=== PATIENT | female | born 2000 | race American Indian/Alaskan Native ===

== ENCOUNTER 2022-03-13 22:16 | Emergency (ER) | payer MEDICAID ==
[2022-03-13] MEDS ORDERED: Amoxicillin 500 MG Cap PO ONE (22:49)
== END 2022-03-13 23:07 | disposition home or self-care (01) ==
LOC: DL.ED 22:16
DX: J02.9 Acute pharyngitis, unspecified (principal)
CPT/HCPCS: 99283; A9270

== ENCOUNTER 2022-11-28 10:46 | Emergency (ER) | payer MEDICAID ==
[2022-11-28] MEDS ORDERED: Sodium Chloride 0.9% 10 ML Syringe FLUSH PRN (10:59)
[2022-11-28] MEDS ORDERED: diphenhydrAMINE 50 MG/ML SDV IVPUSH ONE (10:59)
[2022-11-28] MEDS ORDERED: methylPREDNISolone Sodium Succinate 125 MG/2 ML SDV IVPUSH ONE (11:00)
[2022-11-28] MEDS ORDERED: Sodium Chloride 0.9% 1,000 ML IV ONE (11:00)
[2022-11-28 11:54] LABS: ANION GAP 13.1 mEq/L (7-13)
== END 2022-11-28 12:27 | disposition home or self-care (01) ==
LOC: DL.ED 10:46
DX: O99.73 Diseases of the skin and subcutaneous tissue complicating the puerperium (principal); L50.9 Urticaria, unspecified; Z91.048 Other nonmedicinal substance allergy status; Z98.890 Other specified postprocedural states
CPT/HCPCS: 36415; 80053; 85025; 96361; 96374; 96375; 99283; 99283-25; J1200; J2930; J3490; J7030

== ENCOUNTER 2024-05-13 23:27 | Emergency (ER) | payer SELFPAY ==
[2024-05-14] MEDS: Iopamidol 612 MG/ML 100 ML Bottle IVPUSH ONE (00:01)
[2024-05-14 00:11] LABS: BASOPHILS PERCENT AUTO 0.5 % (0.0-1.0); EOSINOPHILS PERCENT AUTO 10.5 % (1.0-3.0); HEMATOCRIT 36.8 % (37.0-47.0); LYMPHOCYTES PERCENT AUTO 22.2 % (20.5-50.1); MEAN CORPUSCULAR HEMOGLOBIN 25.7 pg (27.0-34.0); MEAN CORPUSCULAR HGB CONC 32.6 g/dL (33.0-35.0); MEAN CORPUSCULAR VOLUME 78.8 fL (80-100); MONOCYTES PERCENT AUTO 8.5 % (2-8); NEUTROPHILS PERCENT AUTO 58.3 % (42.2-75.2); PLATELET COUNT,PLT 243 10^3/uL (150-450); RED BLOOD CELL COUNT 4.67 10^6/uL (4.2-5.4); WHITE BLOOD CELL COUNT,WBC 6.6 10^3/uL (5.0-10.0)
[2024-05-14] MEDS: Sodium Chloride 0.9% 1,000 ML IV ONE (00:22)
[2024-05-14] MEDS: Ondansetron 4 MG/2 ML SDV IVPUSH ONE (00:22)
[2024-05-14] MEDS: HYDROmorphone 0.5 MG/0.5 ML Syringe IVPUSH ONE (00:25)
[2024-05-14 00:26] LABS: ALANINE AMINOTRANSFERASE,ALT 572 U/L (14-59); ALBUMIN 2.7 g/dL (3.4-5.0); ALKALINE PHOSPHATASE 391 U/L (46-116); ANION GAP 14.5 mEq/L (7-13); ASPARTATE AMNIOTRANSFERASE,AST 547 U/L (15-37); BILIRUBIN TOTAL 0.4 mg/dL (0.2-1.0); BLOOD UREA NITROGEN,BUN 4 mg/dL (7-18); BUN/CREATININE RATIO 6.6 (No establ ref range); CALCIUM 7.6 mg/dL (8.5-10.1); CARBON DIOXIDE,CO2 23 mmol/L (21-32); CHLORIDE,CL 104 mmol/L (98-107); CREATININE 0.61 mg/dL (0.55-1.02); ETHANOL BLOOD MEDICAL 191 mg/dL (0); GLUCOSE RANDOM 116 mg/dL (70-99); POTASSIUM,K 3.5 mmol/L (3.5-5.1); PROTEIN TOTAL,TP 6.4 g/dL (6.4-8.2); SODIUM,NA 138 mmol/L (136-145)
[2024-05-14 00:27] LABS: A/G RATIO 0.73; ESTIMATED GFR 128 mL/min (>=60)
[2024-05-14] MEDS: HYDROmorphone 1 MG/ML Syringe IVPUSH ONE (03:20)
[2024-05-14] MEDS: HYDROmorphone 1 MG/ML Syringe ONE (03:23)
== END 2024-05-14 03:21 ==
LOC: DL.ED 23:27
DX: S36.039A Unspecified laceration of spleen, initial encounter (principal); Z91.09 Other allergy status, other than to drugs and biological substances; Y04.8XXA Assault by other bodily force, initial encounter; Y93.89 Activity, other specified
CPT/HCPCS: 36415; 70450; 71260; 72125; 74177; 80053; 80307; 85025; 96374; 96375; 96376; 99285; J1170; J2405; J7030; Q9967

== ENCOUNTER 2024-05-29 16:35 | Emergency (ER) | payer SELFPAY ==
[2024-05-29] MEDS ORDERED: Sodium Chloride 0.9% 10 ML Syringe FLUSH PRN (16:57)
[2024-05-29 17:08] LABS: HEMATOCRIT 36.9 % (37.0-47.0); HEMOGLOBIN 11.7 g/dL (12.0-16.0); MEAN CORPUSCULAR HEMOGLOBIN 25.9 pg (27.0-34.0); MEAN CORPUSCULAR HGB CONC 31.7 g/dL (33.0-35.0); MEAN CORPUSCULAR VOLUME 81.6 fL (80-100); PLATELET COUNT,PLT 592 10^3/uL (150-450); RED BLOOD CELL COUNT 4.52 10^6/uL (4.2-5.4); WHITE BLOOD CELL COUNT,WBC 17.2 10^3/uL (5.0-10.0)
[2024-05-29 17:11] LABS: BASOPHILS PERCENT AUTO 0.6 % (0.0-1.0); EOSINOPHILS PERCENT AUTO 0.5 % (1.0-3.0); LYMPHOCYTES PERCENT AUTO 19.2 % (20.5-50.1); MONOCYTES PERCENT AUTO 7.4 % (2-8); NEUTROPHILS PERCENT AUTO 72.3 % (42.2-75.2)
[2024-05-29] MEDS: Iopamidol 612 MG/ML 100 ML Bottle IVPUSH ONE (17:19)
[2024-05-29 17:25] LABS: A/G RATIO 0.74; ALANINE AMINOTRANSFERASE,ALT 287 U/L (14-59); ALBUMIN 3.1 g/dL (3.4-5.0); ALKALINE PHOSPHATASE 494 U/L (46-116); ANION GAP 9.5 mEq/L (7-13); ASPARTATE AMNIOTRANSFERASE,AST 41 U/L (15-37); BILIRUBIN TOTAL 2.4 mg/dL (0.2-1.0); BLOOD UREA NITROGEN,BUN 17 mg/dL (7-18); BUN/CREATININE RATIO 19.1 (No establ ref range); C-REACTIVE PROTEIN < 0.50 ng/dL (<=0.50); CALCIUM 8.6 mg/dL (8.5-10.1); CARBON DIOXIDE,CO2 29 mmol/L (21-32); CHLORIDE,CL 101 mmol/L (98-107); CREATININE 0.89 mg/dL (0.55-1.02); ESTIMATED GFR 93 mL/min (>=60); GLUCOSE RANDOM 399 mg/dL (70-99); LIPASE 87 U/L (16-77); MAGNESIUM 1.8 mg/dL (1.8-2.4); POTASSIUM,K 4.5 mmol/L (3.5-5.1); PROTEIN TOTAL,TP 7.3 g/dL (6.4-8.2); SODIUM,NA 135 mmol/L (136-145)
[2024-05-29 17:28] LABS: LACTIC ACID 1.7 mmol/L (0.4-2.0)
[2024-05-29 17:31] LABS: LYMPHOCYTES % ATYPICAL MANUAL 2 %; LYMPHOCYTES PERCENT MAN 14 % (20-50); MONOCYTES PERCENT MAN 5 % (2-8); SEG NEUTROPHILS PERCENT MAN 78 % (42-75)
[2024-05-29 17:32] LABS: EOSINOPHILS PERCENT MAN 1 % (1-3)
[2024-05-29 17:58] LABS: APPEARANCE,URINE CLEAR (CLEAR); BILIRUBIN,URINE NEGATIVE (NEGATIVE); COLOR,URINE YELLOW (YELLOW); GLUCOSE,URINE 500 (NEGATIVE); KETONES,URINE NEGATIVE (NEGATIVE); LEUKOCYTE ESTERASE,URINE NEGATIVE (NEGATIVE); NITRITE,URINE NEGATIVE (NEGATIVE); OCCULT BLOOD,URINE NEGATIVE (NEGATIVE); PROTEIN,URINE NEGATIVE (NEGATIVE)
[2024-05-29] MEDS: Sodium Chloride 0.9% 1,000 ML IV ONE (17:58)
== END 2024-05-29 18:40 | disposition home or self-care (01) ==
LOC: DL.ED 16:35
DX: R17 Unspecified jaundice (principal); R79.89 Other specified abnormal findings of blood chemistry; Z79.899 Other long term (current) drug therapy; Z91.09 Other allergy status, other than to drugs and biological substances
CPT/HCPCS: 36415; 74177; 80053; 81003; 83605; 83690; 83735; 85025; 86140; 99284; J7030; Q9967

== ENCOUNTER 2024-08-19 11:25 | Emergency (ER) | payer MEDICAID ==
[2024-08-19] MEDS: Acetaminophen 500 MG Tab PO ONE (11:49)
[2024-08-19 11:57] LABS: APPEARANCE,URINE CLEAR (CLEAR); BILIRUBIN,URINE NEGATIVE (NEGATIVE); COLOR,URINE YELLOW (YELLOW); GLUCOSE,URINE NEGATIVE (NEGATIVE); KETONES,URINE NEGATIVE (NEGATIVE); LEUKOCYTE ESTERASE,URINE NEGATIVE (NEGATIVE); NITRITE,URINE NEGATIVE (NEGATIVE); OCCULT BLOOD,URINE NEGATIVE (NEGATIVE); PH,URINE 7.5 (5.0-9.0); PROTEIN,URINE TRACE (NEGATIVE)
[2024-08-19 11:58] LABS: AMPHETAMINES,URINE POSITIVE (NEGATIVE); BARBITURATES,URINE NEGATIVE (NEGATIVE); BENZODIAZEPINE,URINE NEGATIVE (NEGATIVE); MDMA (ECSTASY), URINE POSITIVE (NEGATIVE); METHADONE,URINE NEGATIVE (NEGATIVE); METHAMPHETAMINES,URINE POSITIVE (NEGATIVE); OPIATES,URINE NEGATIVE (NEGATIVE); OXYCODONE,URINE NEGATIVE (NEGATIVE); PHENCYCLIDINE,URINE NEGATIVE (NEGATIVE); TCA,URINE NEGATIVE (NEGATIVE)
[2024-08-19 12:03] LABS: BASOPHILS PERCENT AUTO 0.4 % (0.0-1.0); EOSINOPHILS PERCENT AUTO 5.8 % (1.0-3.0); HEMATOCRIT 42.8 % (37.0-47.0); HEMOGLOBIN 14.1 g/dL (12.0-16.0); LYMPHOCYTES PERCENT AUTO 34.5 % (20.5-50.1); MEAN CORPUSCULAR HEMOGLOBIN 26.7 pg (27.0-34.0); MEAN CORPUSCULAR HGB CONC 32.9 g/dL (33.0-35.0); MEAN CORPUSCULAR VOLUME 80.9 fL (80-100); MONOCYTES PERCENT AUTO 6.8 % (2-8); NEUTROPHILS PERCENT AUTO 52.5 % (42.2-75.2); PLATELET COUNT,PLT 382 10^3/uL (150-450); RED BLOOD CELL COUNT 5.29 10^6/uL (4.2-5.4); WHITE BLOOD CELL COUNT,WBC 8.1 10^3/uL (5.0-10.0)
[2024-08-19 12:13] LABS: BACTERIA,URINE FEW /HPF (0-FEW/HPF); EPITHELIAL CELLS,URINE FEW /HPF (NOT SEEN); MUCUS,URINE MODERATE /LPF (NOT SEEN); RBC,URINE 0-5 /HPF (0-5); WBC,URINE 0-5 /HPF (0-5/HPF)
[2024-08-19 12:14] LABS: HYALINE CASTS,URINE FEW
[2024-08-19 12:22] LABS: A/G RATIO 0.8; ALANINE AMINOTRANSFERASE,ALT 48 U/L (14-59); ALKALINE PHOSPHATASE 170 U/L (46-116); ANION GAP 15.8 mEq/L (7-13); ASPARTATE AMNIOTRANSFERASE,AST 36 U/L (15-37); BILIRUBIN TOTAL 0.5 mg/dL (0.2-1.0); BLOOD UREA NITROGEN,BUN 13 mg/dL (7-18); BUN/CREATININE RATIO 18.1 (No establ ref range); CALCIUM 9.4 mg/dL (8.5-10.1); CARBON DIOXIDE,CO2 27 mmol/L (21-32); CHLORIDE,CL 99 mmol/L (98-107); CREATININE 0.72 mg/dL (0.55-1.02); EST CRCL DRUG DOSING (CG) 108.41 mL/min; ESTIMATED GFR 120 mL/min (>=60); ETHANOL BLOOD MEDICAL < 3 mg/dL (0); GLUCOSE RANDOM 107 mg/dL (70-99); POTASSIUM,K 3.8 mmol/L (3.5-5.1); PROTEIN TOTAL,TP 8.9 g/dL (6.4-8.2); SODIUM,NA 138 mmol/L (136-145)
[2024-08-19 12:26] LABS: HCG QUALITATIVE,SERUM NEGATIVE (NEGATIVE)
== END 2024-08-19 12:43 | disposition home or self-care (01) ==
LOC: DL.ED 11:25 → EEVIPCON 11:25 → DL.ED 12:43
DX: R10.84 Generalized abdominal pain (principal); Z91.048 Other nonmedicinal substance allergy status; Z79.899 Other long term (current) drug therapy
CPT/HCPCS: 36415; 80053; 80305; 80307; 81001; 84703; 85025; 99284; A9270

== ENCOUNTER 2025-04-14 00:30 | Emergency (ER) | payer SELFPAY ==
[2025-04-14] MEDS: Ketorolac 30 MG/ML SDV IM ONE (01:01)
== END 2025-04-14 03:13 | disposition home or self-care (01) ==
LOC: DL.ED 00:30
DX: S00.83XA Contusion of other part of head, initial encounter (principal); Z91.09 Other allergy status, other than to drugs and biological substances; Z79.899 Other long term (current) drug therapy; Y04.8XXA Assault by other bodily force, initial encounter
CPT/HCPCS: 70140; 96372; 99283; 99284; J1885

== ENCOUNTER 2025-08-09 04:25 | Inpatient (IN) | payer MEDICAID ==
[2025-08-09] MEDS ORDERED: Sodium Chloride 0.9% 10 ML Syringe FLUSH PRN (04:29)
[2025-08-09 04:38] LABS: BASOPHILS PERCENT AUTO 0.1 % (0.0-1.0); EOSINOPHILS PERCENT AUTO 1.4 % (1.0-3.0); LYMPHOCYTES PERCENT AUTO 7.0 % (20.5-50.1); MONOCYTES PERCENT AUTO 2.2 % (2-8); NEUTROPHILS PERCENT AUTO 89.3 % (42.2-75.2); PLATELET COUNT,PLT 240 10^3/uL (150-450); RED BLOOD CELL COUNT 4.86 10^6/uL (4.2-5.4); WHITE BLOOD CELL COUNT,WBC 18.2 10^3/uL (5.0-10.0)
[2025-08-09 04:59] LABS: APPEARANCE,URINE CLOUDY (CLEAR); GLUCOSE,URINE NEGATIVE (NEGATIVE); OCCULT BLOOD,URINE MODERATE (NEGATIVE)
[2025-08-09] MEDS: Ondansetron 4 MG/2 ML SDV IVPUSH ONE (05:04)
[2025-08-09 05:06] LABS: AMPHETAMINES,URINE NEGATIVE (NEGATIVE); BARBITURATES,URINE NEGATIVE (NEGATIVE); MDMA (ECSTASY), URINE NEGATIVE (NEGATIVE); METHAMPHETAMINES,URINE NEGATIVE (NEGATIVE); OPIATES,URINE POSITIVE (NEGATIVE); OXYCODONE,URINE NEGATIVE (NEGATIVE); PHENCYCLIDINE,URINE NEGATIVE (NEGATIVE); TCA,URINE NEGATIVE (NEGATIVE)
[2025-08-09 05:08] LABS: A/G RATIO 0.53; ALANINE AMINOTRANSFERASE,ALT 38 U/L (14-59); ASPARTATE AMNIOTRANSFERASE,AST 27 U/L (15-37); BILIRUBIN TOTAL 0.7 mg/dL (0.2-1.0); BLOOD UREA NITROGEN,BUN 8 mg/dL (7-18); CARBON DIOXIDE,CO2 26 mmol/L (21-32); CHLORIDE,CL 102 mmol/L (98-107); CREATININE 0.96 mg/dL (0.55-1.02); EST CRCL DRUG DOSING (CG) 77.36 mL/min; ESTIMATED GFR 84 mL/min (>=60); ETHANOL BLOOD MEDICAL < 3 mg/dL (0); GLUCOSE RANDOM 109 mg/dL (70-99); POTASSIUM,K 3.3 mmol/L (3.5-5.1); PROTEIN TOTAL,TP 7.5 g/dL (6.4-8.2); SODIUM,NA 138 mmol/L (136-145)
[2025-08-09 05:22] LABS: EPITHELIAL CELLS,URINE FEW /HPF (NOT SEEN)
[2025-08-09] MEDS: NS with KCl 40mEq 1,000 ML IV SCH (05:22)
[2025-08-09] MEDS: Heparin Sodium 5,000 Units/ML Vial SUBCUT SCH (08:07)
[2025-08-09] MEDS: Ondansetron 4 MG/2 ML SDV IVPUSH PRN (17:40)
[2025-08-10 06:27] LABS: PLATELET COUNT,PLT 205 10^3/uL (150-450); RED BLOOD CELL COUNT 4.23 10^6/uL (4.2-5.4); WHITE BLOOD CELL COUNT,WBC 14.5 10^3/uL (5.0-10.0)
[2025-08-10 06:40] LABS: BASOPHILS PERCENT AUTO 0.1 % (0.0-1.0); EOSINOPHILS PERCENT AUTO 1.3 % (1.0-3.0); LYMPHOCYTES PERCENT AUTO 9.2 % (20.5-50.1); MONOCYTES PERCENT AUTO 10.6 % (2-8); NEUTROPHILS PERCENT AUTO 78.8 % (42.2-75.2)
[2025-08-10 06:49] LABS: ALANINE AMINOTRANSFERASE,ALT 23.0 U/L (14-59); ASPARTATE AMNIOTRANSFERASE,AST 13.0 U/L (15-37); BILIRUBIN DIRECT 0.2 mg/dL (0.0-0.2); BILIRUBIN INDIRECT 0.2; BILIRUBIN TOTAL 0.4 mg/dL (0.2-1.0); BLOOD UREA NITROGEN,BUN 6.0 mg/dL (7-18); CARBON DIOXIDE,CO2 24.0 mmol/L (21-32); CHLORIDE,CL 106.0 mmol/L (98-107); CREATININE 1.0 mg/dL (0.55-1.02); EST CRCL DRUG DOSING (CG) 77.38 mL/min; GLUCOSE RANDOM 170.0 mg/dL (70-99); POTASSIUM,K 4.6 mmol/L (3.5-5.1); PROTEIN TOTAL,TP 6.4 g/dL (6.4-8.2); SODIUM,NA 140.0 mmol/L (136-145)
[2025-08-10 06:53] LABS: A/G RATIO 0.39; ESTIMATED GFR 80.0 mL/min (>=60)
[2025-08-10 07:38] LABS: LYMPHOCYTES PERCENT MAN 11 % (20-50); MONOCYTES PERCENT MAN 9 % (2-8); SEG NEUTROPHILS PERCENT MAN 80 % (42-75)
[2025-08-10] MEDS ORDERED: FLU (Fluarix Triv) 25-26 (6MOS UP)/PF 45 MCG/0.5 ML Syringe IM ONE (12:00)
[2025-08-11 06:18] LABS: BASOPHILS PERCENT AUTO 0.3 % (0.0-1.0); EOSINOPHILS PERCENT AUTO 2.0 % (1.0-3.0); LYMPHOCYTES PERCENT AUTO 18.4 % (20.5-50.1); MONOCYTES PERCENT AUTO 13.4 % (2-8); NEUTROPHILS PERCENT AUTO 65.9 % (42.2-75.2); PLATELET COUNT,PLT 283 10^3/uL (150-450); RED BLOOD CELL COUNT 4.73 10^6/uL (4.2-5.4); WHITE BLOOD CELL COUNT,WBC 8.9 10^3/uL (5.0-10.0)
[2025-08-11 06:25] LABS: ALANINE AMINOTRANSFERASE,ALT 24.0 U/L (14-59); ASPARTATE AMNIOTRANSFERASE,AST 16.0 U/L (15-37); BILIRUBIN DIRECT 0.2 mg/dL (0.0-0.2); BILIRUBIN INDIRECT 0.1; BILIRUBIN TOTAL 0.3 mg/dL (0.2-1.0); BLOOD UREA NITROGEN,BUN 8.0 mg/dL (7-18); CARBON DIOXIDE,CO2 25.0 mmol/L (21-32); CHLORIDE,CL 102.0 mmol/L (98-107); CREATININE 1.02 mg/dL (0.55-1.02); EST CRCL DRUG DOSING (CG) 75.87 mL/min; GLUCOSE RANDOM 111.0 mg/dL (70-99); POTASSIUM,K 4.5 mmol/L (3.5-5.1); PROTEIN TOTAL,TP 7.9 g/dL (6.4-8.2); SODIUM,NA 138.0 mmol/L (136-145)
[2025-08-11 06:26] LABS: A/G RATIO 0.39; ESTIMATED GFR 78.0 mL/min (>=60)
[2025-08-12] MEDS: FLU (Fluarix Triv) 25-26 (6MOS UP)/PF 45 MCG/0.5 ML Syringe IM ONE (10:51)
== END 2025-08-12 11:25 | disposition home or self-care (01) | DRG 872 ==
LOC: DL.ED 04:25 → DL.MS 06:15 → OBSVTOIN 08-10 13:35
PROVIDERS: ADMIT Internal Medicine; ATTEND Internal Medicine
DX: A41.51 Sepsis due to Escherichia coli [E. coli] (principal); N39.0 Urinary tract infection, site not specified; E87.20 Acidosis, unspecified; N13.30 Unspecified hydronephrosis; N13.4 Hydroureter; G62.9 Polyneuropathy, unspecified; E87.6 Hypokalemia; D72.825 Bandemia; D64.9 Anemia, unspecified; R73.9 Hyperglycemia, unspecified; E86.0 Dehydration; Z91.51 Personal history of suicidal behavior; Z86.39 Personal history of other endocrine, nutritional and metabolic disease; Z79.1 Long term (current) use of non-steroidal anti-inflammatories (NSAID); Z79.899 Other long term (current) drug therapy; Z23 Encounter for immunization; Z91.09 Other allergy status, other than to drugs and biological substances
CPT/HCPCS: 36415; 71046; 74176; 80048; 80053; 80076; 80305-QW; 80307; 81001; 81025; 82977; 83036; 83605; 83690; 83735; 84100; 85025; 87040; 87077; 87086; 87088; 87186; 90656; 96361; 96365; 96366; 96372; 96375; 96376; 99223; 99232; 99233; 99239; 99284; 99285-25; A9270-GY; G0008; G0378; J0696; J1644; J2270; J2405; J3480; J7030